=== PATIENT | female | born 1995 | race Caucasian/White ===

== ENCOUNTER 2016-12-01 12:07 | Emergency (ER) | payer OTHER ==
[2016-12-01] MEDS ORDERED: Ondansetron INJ* 2 MG/ML VIAL IV ONE (14:17)
[2016-12-01] MEDS: NS 0.9% 1000 ML* 2,000 ML IV ONE ×2 (14:28→15:39)
[2016-12-01 14:33] LABS: Hematocrit 43 % (35-47); Hemoglobin 14.2 g/dl (12.0-16.0); Mean Corpuscular HGB Conc 33 g/dl (31-36); Mean Corpuscular Hemoglobin 29 pg (27-31); Mean Corpuscular Volume 87 fL (80-97); Mean Platelet Volume 8 um3 (7.4-10.4); Red Blood Count 4.92 10^6/ul (4.0-5.4); Red Cell Distribution Width 13 % (10.5-15)
[2016-12-01 14:50] LABS: ALT 12 U/L (7-52); AST 11 U/L (13-39); Alkaline Phosphatase 49 U/L (34-104); Anion Gap 4 mmol/L (2-11); BUN/Creatinine Ratio 13.5 (8-20); Blood Urea Nitrogen 10 mg/dL (6-24); C Reactive Protein 79.75 mg/L (< 5.00); CO2 Carbon Dioxide 29 mmol/L (22-32); Calcium 9.2 mg/dL (8.6-10.3); Chloride 101 mmol/L (101-111); EGFR African American 128.7 (>60); EGFR Non-African American 100.1 (>60); Globulin 2.7 g/dL (2-4); Glucose 99 mg/dL (70-100); Potassium 3.4 mmol/L (3.5-5.0); Sodium 134 mmol/L (133-145); Total Protein 6.7 g/dL (6.4-8.9)
--- NOTE | 2016-12-01 15:52 | ED ---
lesly Lopes Timothy, scribed for Margarito Parisi MD on 12/01/16 at 1417 . Influenza-Like Illness - HPI Summary HPI Summary: Madonna Randhawa is a 21 yo female presenting to [facility] with N/V/D, 4/10 BOX in the occipital region, and bilaterally near the front of her head, and has been unable to urinate for the past 30 hours. Her Sx began on 11/30/16 at 0500, at which point she vomited 7x between 0500 and 1200. After 1200 she did not vomit any more, but has been unable to eat any solid food. She has had sharp pain in her periumbilical region prior to diarrhea, and has had diarrhea 5x since 0000 today. The diarrhea is completely liquid. Upon calling the on-call nurse at [place], the nurse stated that she was most likely dehydrated, but had her call for transport to the ED just in case. Her MHx includes tonsilectomy and adenoids. - History of Current Complaint Chief Complaint: EDHeadache Time Seen by Provider: 12/01/16 14:01 Hx Obtained From: Patient Onset/Duration: Gradual Onset, Lasting Days, Still Present Severity: Moderate Associated Signs & Symptoms: Headache, Vomiting, Diarrhea - Allergy/Home Medications Allergies/Adverse Reactions: Allergies Allergy/AdvReac Type Severity Reaction Status Date / Time Cefadroxil [From [facility] [place] Allergy Severe Hives Verified 12/01/16 12:22 PMH/Surg Hx/FS Hx/Imm Hx Infectious Disease History: No Infectious Disease History: Denies: Traveled Outside the [place] in Last 30 Days - Family History Known Family History: Positive: Hypertension Negative: Cardiac Disease, Diabetes - Social History Alcohol Use: Weekly Hx Substance Use: Yes Substance Use Type: Reports: Marijuana - recreational Hx Tobacco Use: No Smoking Status (MU): Never Smoked Tobacco Review of Systems Constitutional: Negative Eyes: Negative ENT: Negative Cardiovascular: Negative Respiratory: Negative Positive: Abdominal Pain, Vomiting, Diarrhea, Nausea Positive: dysuria - no uriantion for 30 hours Musculoskeletal: Negative Skin: Negative Positive: Headache Psychological: Normal All Other Systems Reviewed And Are Negative: Yes Physical Exam Triage Information Reviewed: Yes Vital Signs On Initial Exam: Initial Vitals Temp Pulse Resp BP Pulse Ox 99.1 F 89 15 122/80 98 12/01/16 12:10 12/01/16 12:10 12/01/16 12:10 12/01/16 12:10 12/01/16 12:10 Vital Signs Reviewed: Yes Appearance: Positive: Well-Appearing, No Pain Distress, Well-Nourished Skin: Positive: Warm, Skin Color Reflects Adequate Perfusion, Dry Head/Face: Positive: Normal Head/Face Inspection Eyes: Positive: Normal ENT: Positive: Normal ENT inspection - mucuos membranes unremarkably mildly dry Neck: Positive: Supple, Nontender Respiratory/Lung Sounds: Positive: Clear to Auscultation, Breath Sounds Present Cardiovascular: Positive: RRR Abdomen Description: Positive: Nontender, Soft Bowel Sounds: Positive: Present Musculoskeletal: Positive: Normal Neurological: Positive: Normal, Other - negative kernig's test, negative babinski test. Negative: Babinski Left, Babinski Right, Babinski Bilateral Psychiatric: Positive: Normal Diagnostics - Vital Signs Vital Signs Temp Pulse Resp BP Pulse Ox 12/01/16 13:03 99.2 F 78 14 115/71 99 12/01/16 12:10 99.1 F 89 15 122/80 98 - Laboratory Lab Results: Lab Results 12/01/16 12/01/16 12/01/16 Range/Units 14:00 14:00 14:00 WBC 4.0 (3.5-10.8) 10^3/ul RBC 4.92 (4.0-5.4) 10^6/ul Hgb 14.2 (12.0-16.0) g/dl Hct 43 (35-47) % MCV 87 (80-97) fL MCH 29 (27-31) pg MCHC 33 (31-36) g/dl RDW 13 (10.5-15) % Plt Count 181 (150-450) 10^3/ul MPV 8 (7.4-10.4) um3 Neut % (Auto) 65.0 (38-83) % Lymph % (Auto) 21.9 L (25-47) % Chase % (Auto) 11.4 H (1-9) % Eos % (Auto) 1.2 (0-6) % Baso % (Auto) 0.5 (0-2) % Absolute Neuts (auto) 2.6 (1.5-7.7) 10^3/ul Absolute Lymphs (auto) 0.9 L (1.0-4.8) 10^3/ul Absolute Monos (auto) 0.5 (0-0.8) 10^3/ul Absolute Eos (auto) 0 (0-0.6) 10^3/ul Absolute Basos (auto) 0 (0-0.2) 10^3/ul Absolute Nucleated RBC 0 10^3/ul Nucleated RBC % 0.1 Sodium 134 (133-145) mmol/L Potassium 3.4 L (3.5-5.0) mmol/L Chloride 101 (101-111) mmol/L Carbon Dioxide 29 (22-32) mmol/L Anion Gap 4 (2-11) mmol/L BUN 10 (6-24) mg/dL Creatinine 0.74 (0.51-0.95) mg/dL Est GFR ( Amer) 128.7 (>60) Est GFR (Non-Af Amer) 100.1 (>60) BUN/Creatinine Ratio 13.5 (8-20) Glucose 99 (70-100) mg/dL Lactic Acid 0.5 (0.5-2.0) mmol/L Calcium 9.2 (8.6-10.3) mg/dL Total Bilirubin 0.70 (0.2-1.0) mg/dL AST 11 L (13-39) U/L ALT 12 (7-52) U/L Alkaline Phosphatase 49 (34-104) U/L C-Reactive Protein 79.75 H (< 5.00) mg/L Total Protein 6.7 (6.4-8.9) g/dL Albumin 4.0 (3.2-5.2) g/dL Globulin 2.7 (2-4) g/dL Albumin/Globulin Ratio 1.5 (1-3) Beta HCG, Quant < 0.60 mIU/mL Result Diagrams: 12/01/16 14:00 12/01/16 14:00 Lab Statement: Any lab studies that have been ordered have been reviewed, and results considered in the medical decision making process. Flu Symptom Course/Dx - Course Assessment/Plan: Madonna Randhawa is a 21 yo female presenting to [facility] with N/V/ D and BOX, presenting per recommendation by the on-call nurse at [place], who belives she is dehydrated. She clinically lookes dry and was rehydrated while labs were pending. She did feel improved with fluids and her labs were OK. She will be discharged home with gastroenteritis. - Diagnoses Provider Diagnoses: Gastroenteritis Discharge - Discharge Plan Condition: Stable Disposition: HOME Patient Education Materials: Gastroenteritis (ED) Referrals: NIKKY Omer [Primary Care Provider] - 2 Days Additional Instructions: Please follow up with Nikky within 2 days regarding your visit to the emergency department. Return to the emergency department with any new or recurring symptoms. The documentation as recorded by the lesly reed Timothy accurately reflects the service I personally performed and the decisions made by me, Margarito Parisi MD.
[2016-12-01 15:55] LABS: Urine Bacteria 1+ (Absent); Urine Bilirubin Negative (Negative); Urine Glucose Negative (Negative); Urine Nitrite Negative (Negative)
[2016-12-01] MEDS ORDERED: Ondansetron ODT TAB* 4 MG PO ONE (17:45)
[2016-12-01 18:24] VITALS: BP 99/56
--- NOTE | 2017-01-06 07:13 | ED ---
I, Oh,Soohyun, scribed for Gilberto Sommer MD on 12/01/16 at 1737 . Progress - Progress Note Progress Note: Signed from Dr. Parisi. Plan of care involved fluid resuscitation and discharge if stable. Pt confirms fever last night and this morning, n/v yesterday since 0400 AM yesterday, diarrhea today. Pt again denies any blood in vomiti or stool. Pt urinated once in ED. Pt states that pt is feeling better with NS IV but BOX still persist. R/b/a of flu swap is discussed, and pt Physical Exam - Summary Physical Exam Summary: General: Comfortable, pleasant, alert HEENT: Moist mucosa Neck: soft, supple, no adenopathy, no edema. FROM. No nucal rigidity. Heart: S1, S2, RRR, no murmurs, rubs, or gallops Lungs: Clear to auscultation, breathing comfortable, no wheezes or rales Abdominal: Soft, flat, nontender Extremities: No edema, no calf tenderness. Negative Kernig and babinski sign. Neuro: Alert and oriented x 3 Psych: Logical, coherent Triage Information Reviewed: Yes Vital Signs On Initial Exam: Initial Vitals Temp Pulse Resp BP Pulse Ox 99.1 F 89 15 122/80 98 12/01/16 12:10 12/01/16 12:10 12/01/16 12:10 12/01/16 12:10 12/01/16 12:10 Vital Signs Reviewed: Yes - [place] Coma Scale Coma Scale Total: 15 Course/Dx - Course Course Of Treatment: She comes in with primarily GI symtpoms, low grade fever, but does not have any suggestion for invasive bacterial infection such as tenderness or bleeding. We considered testing for influenza. However, pt is extremely healthy and low risk of flu complication. With positive flu swap, the pt will still be in treatemnt window. Even negative pt will continue to treat symptomatically until better. We lastly considered meningitis. However, pt had no nuchal rigidity, easily moving her head during conversiation and without any toxic appearance. Pt in fact appears quite comfortable. We will do PO challenge and send pt home with outpatient f/u with [facility]. Pt actually already has appointment at 1100 at [facility]. She will return with any worsening symtpoms or any develops any signs of dehydration. Clinical warning signs have been described in details. - Diagnoses Provider Diagnoses: Gastroenteritis The documentation as recorded by the Scottie reed Soohyun accurately reflects the service I personally performed and the decisions made by me, Gilberto Sommer MD.
== END 2016-12-01 18:22 | disposition home or self-care (01) ==
LOC: ED 12:07
DX: K52.9 Noninfective gastroenteritis and colitis, unspecified (principal); R51 Headache; R11.2 Nausea with vomiting, unspecified; R19.7 Diarrhea, unspecified; R30.0 Dysuria
CPT/HCPCS: 36415; 80053; 81003; 81015; 83605; 84702; 85025; 86140; 87086; 96374; 99283; A9270-GY; J2405